=== PATIENT | female | born 1950 | race Caucasian/White ===

== ENCOUNTER → 2017-11-01 | Outpatient (CLI) | payer OTHER, MEDICARE ==
[~2017-11-01] MED LIST: AZILECT1 MG; LEVOTHYROXINE0.05 MG; NORCO 5-325 TA1 EACH PO; REQUIP 0.25 M0.25 M1
== END ==
LOC: MRI 13:22
DX: S83.411A Sprain of medial collateral ligament of right knee, initial encounter (principal); X58.XXXA Exposure to other specified factors, initial encounter; Y93.89 Activity, other specified; Y92.89 Other specified places as the place of occurrence of the external cause; Y99.8 Other external cause status

== ENCOUNTER → 2020-07-08 | Outpatient (CLI) | payer OTHER, MEDICARE ==
[~2020-07-08] MED LIST changes: +AMANTADINE 100100 M1 PO; +BAYER CHEWABLE81 MG PO; +CARBIDOPA-LEVO1 EAC9 PO; +CO-ENZYME Q-1010 MG PO; +DEXTROAMP-AMPHE20 MG PO; +LEVOTHYROXINE88 MCG PO; +LEXAPRO 10 MG T10 M2 PO; +NEURONTIN 300M300 M2 PO; +OCUVITE ADULT1 EAC1 PO; +ROPINIROLE HCL2 MG PO; +TIZANIDINE HCL 22 M1 PO; +TURMERIC500 M2 PO; +VITAMIN B-121000 MC2 SUBLING; +VITAMIN D325 MC3 PO
[2020-07-08 13:45] LABS: HEMATOCRIT 41.1 % (37.0-47.0); HEMOGLOBIN 14.2 gm/dL (12.0-15.0); MCH 35.4 pg (26.0-34.0); MCHC 34.5 g/dL (28.0-37.0); MCV 102.7 fL (80.0-100.0); RDW 12.9 % (10.5-14.5); URINE BILIRUBIN NEGATIVE (Negative); URINE BLOOD NEGATIVE (Negative); URINE CLARITY CLEAR; URINE COLOR YELLOW; URINE GLUCOSE-RANDOM* NEGATIVE (Negative); URINE KETONES NEGATIVE (Negative); URINE LEUKOCYTES-REFLEX NEGATIVE (Negative); URINE NITRITE-REFLEX NEGATIVE (Negative); URINE PROTEIN (DIPSTICK) NEGATIVE (Negative); URINE UROBILINOGEN 0.2 E.U./dl (0.2-1.0); WBC 7.7 thou/uL (4.0-11.0)
[2020-07-08 14:01] LABS: ALBUMIN 3.8 g/dL (3.4-5.0); CREATININE 1.2 mg/dL (0.6-1.0); INR 0.92; POTASSIUM 4.3 mmol/L (3.5-5.1); PROTIME 10.1 Seconds (9.3-11.4)
--- NOTE | 2020-07-08 15:15 | EKG ---
[address] [address] ELECTROCARDIOGRAM REPORT Name: JUSTA MIMS Room #: [facility]#: [id number] Admission: Attend Phys: Kumar Meeks MD Discharge: Date of : 50 Report #: [id number] [facility] Test Date: 2020-07-08 Test Time: 13:30:48 Pat Name: JUSTA CELAYACHESTER Department: Room: Gender: F [employer] Instructor: Annabelle GALLARDO : 1950 Requested By: Kumar Meeks Order Number: [id number] MD: Bill Mcmanus Measurements Intervals [place] Rate: 69 P: 67 HI: 152 QRS: 3 QRSD: 103 T: 55 QT: 393 QTc: 421 Interpretive Statements Sinus rhythm Normal tracing No previous ECG available for comparison Electronically Signed On 07-08-2020 15:15:08 CDT by Bill Mcmanus [email or web address] <ELECTRONICALLY SIGNED> By: Bill Mcmanus MD, [facility] 07/08/20 1515 1330 1330 Bill Mcmanus MD, FACC /EPI
== END ==
LOC: LAB 10:00
PROVIDERS: ATTEND Orthopaedic Surgery
DX: Z01.812 Encounter for preprocedural laboratory examination (principal); Z20.822 Contact with and (suspected) exposure to COVID-19; I49.9 Cardiac arrhythmia, unspecified

== ENCOUNTER 2020-07-13 06:34 | Inpatient (IN) | payer OTHER, MEDICARE ==
[~2020-07-13] VITALS: Ht 154.9 cm; Wt 74.4 kg
--- NOTE | ~2020-07-13 | O ---
[facility] [place] [address] OPERATIVE REPORT Name: JUSTA MIMS Room #: 439-P [facility].#: [id number] Admission: 07/13/20 Attend Phys: Kumar Meeks MD Discharge: Date of : 50 Report #: [id number] THIS REPORT FOR: cc: Stephanie Pak MD, Rita MD Abraham,Kumar Duarte MD ~ DATE OF SERVICE: 07/13/2020 PREOPERATIVE DIAGNOSIS: Left knee osteoarthritis. POSTOPERATIVE DIAGNOSIS: Left knee osteoarthritis. PROCEDURE: Left total knee arthroplasty using Navio robotic medical research assistant. SURGEON: Kumar Meeks MD MANAGER PAID: Kay Jaramillo PA-C INDICATIONS FOR MANAGER PAID: Throughout the case, extensive retraction and manipulation of the knee was required. This was afforded to me by my medical research assistant. ANESTHESIA: LMA with adductor canal block. IMPLANTS: [employer]ano [employer]hew size 5 Journey II BCS cobalt chrome femur, a size 3 tibia, size 32 patella and a 10 constrained polyethylene. TOURNIQUET TIME: 50 minutes. ESTIMATED BLOOD LOSS: 25 mL. COMPLICATIONS: None. SPECIMENS: None. CONDITION UPON LEAVING THE OPERATING ROOM: Stable. INDICATIONS FOR PROCEDURE: The patient is a 69-year-old female with severe left knee valgus osteoarthritis. She had failed conservative measures for this and after discussion with her, she elected for left total knee arthroplasty. DESCRIPTION OF PROCEDURE: Risks, benefits, alternatives, and complications were discussed in detail with the patient including but not limited to risk of anesthesia, risk of damage to nerves, arteries, blood vessels, risk for infection, bleeding, risk for reoperation. Informed consent was obtained from the patient. Left knee was appropriately marked in the preoperative holding [address] [address] OPERATIVE REPORT Name: JUSTA MIMS Room #: 439-P [facility] Ibrahima#: [id number] Admission: 07/13/20 Attend Phys: Kumar Meeks MD Discharge: Date of : 50 Report #: [id number]. Adductor canal block was placed by anesthesia. IV Ancef was given for preoperative antibiotics. She was brought to the operating room and placed in supine position on operating room table. LMA anesthesia was induced without complication. Tourniquet was placed on the left thigh. Left lower extremity was prepped and draped in normal sterile fashion. Timeout was performed properly identifying the patient and procedure as well as the instrumentation and implants. All in the operating room were in agreement. Left lower extremity was exsanguinated, tourniquet was inflated. Tourniquet time was 50 minutes. Standard midline approach to the knee was made with 10 blade through the skin. Dissection was taken down sharply to the fascia and deep flaps were developed medially and laterally. Fresh 10 blade was used to make a medial parapatellar arthrotomy and the knee was inspected. There was severe valgus osteoarthritis with complete loss of lateral joint articular cartilage. The ACL and PCL were removed sharply. Reference pins were placed in the femur and the tibia. The knee was then digitally mapped using the [employer] robotic system. Intraoperative plan was made and we sized the size 5 femur and a size 3 tibia and a 10 spacer. After acceptance of the intraoperative plan, the distal femoral cut was made with a Navio bur. Distal femoral cutting block was pinned in place and chamfer cuts were made. Attention was turned to the tibia. Remainder of the menisci removed with Bovie cautery. Tibial resection guide was pinned in place using the Navio for placement and tibial resection was made. Flexion and extension gaps were checked and found to have good balance laterally in flexion and extension medially, she did open up in 3-4 mm. It was felt we could make up for this with a constrained implant. Tibia was sized, found to be a size 3. A size 3 tibial trial was placed, pinned and punched. Size 5 femoral trial was placed and the box cut was made. This was then trialed with a size 10 polyethylene. Knee was taken through range of motion, found to be stable, found to have good balance laterally throughout range of motion with again 3-4 mm of laxity medially. It was felt we could use a constrained implant, 9 mm of bone was resected from the posterior surface of the patella and a size 32 patellar trial button was placed. Knee was taken through range of motion, found to be stable, found to have good patellar tracking. Trial components were removed. Bony ends were thoroughly irrigated with normal saline. Final size ____ tibia, size 32 patella were cemented in place using standard cementation techniques. While the cement cured, a periarticular injection consisting of morphine, ropivacaine, epinephrine, Toradol was placed around the knee joint capsule. After the cement cured, tourniquet was deflated. Hemostasis was obtained with Bovie cautery. Final size 10 constrained polyethylene was placed. A gram of vancomycin was placed deep in the joint. Fascia was closed with 0 Vicryl, skin was closed with 2-0 Vicryl, skin staple and a KEV dressing was applied. The [address] [address] OPERATIVE REPORT Name: JUSTA MIMS Room #: 439[facility]P [id number] Admission: 07/13/20 Attend Phys: Kumar Meeks MD Discharge: Date of : 50 Report #: [id number] patient tolerated this procedure well and went to the recovery room under care of anesthesia postoperatively. By: [id number] Kumar Meeks MD /nt
[~2020-07-13 06:34] MED LIST changes: -BAYER CHEWABLE81 MG PO; -NEURONTIN 300M300 M2 PO
[2020-07-13 08:42] VITALS: BP 125/64
[2020-07-13 11:48] VITALS: BP 133/71
--- NOTE | 2020-07-13 14:59 | NUR ---
ASSUMED PT CARE AT 1136. PT IS ALERT & ORIENTED X4. PT HAD SURGERY TODAY L TKA NAVIO. PT DENIES PAIN DURING SHIFT. PT HAS KEV DRESSING, TORRES ANAYA, ILDA. PT SISTER AT THE BEDSIDE. INFORMED DR ABOUT MED REC BECAUSE PT STATED SHE NEEDS TO TAKE HER MED AT EXACT TIME. GIVEN PT MED PER REQUEST. PT ON THE BED, BED ON THE LOWEST POSITION, SIDE RAILS UP, CALL LIGHT WITHIN REACH. WILL CONTINUE TO MONITOR PT. FOLLOW POC.
--- NOTE | 2020-07-13 15:37 | NUR ---
ASSESSMENT: CM REVIEWED CHART. PT IS ALERT AND ORIENTED X4. PT REPORTS LIVING IN A HOUSE WITH HER DAUGHTER AND GRANDSON. PT IS S/P L TKA. PT REPORTS HAVING ONE STEP TO ENTER THE HOME AND NO STEPS ONCE INSIDE. PT REPORTS HAVING A CANE FOR AMBULATION BUT DOES NOT HAVE A WALKER. PHYSICAL THERAPY UNABLE TO WORK WITH PT AT THIS TIME DUE TO FOOT DROP. CM DISCUSSED POSSIBLE NEED FOR A WALKER AT DISCHARGE AND PT REPORTS NO PREFERENCE OF [employer] IF WALKER IS NEEDED. PT REPORTS SHE HAS OUTPATIENT THERAPY ARRANGED TO BEGIN AT [facility] ON MONDAY. CM DISCUSSED ROLE. ANTICIPATE POSSIBLE NEED FOR WALKER AT DISCHARGE. CM WILL CONTINUE TO FOLLOW.
[2020-07-13 16:00] VITALS: BP 118/67
[2020-07-13 19:15] VITALS: BP 124/65
[2020-07-14 03:42] VITALS: BP 114/59
--- NOTE | 2020-07-14 04:48 | NUR ---
RECEIVED CARE OF THIS PATIENT AT 1900. PATIENT ALERT AND ORIENTED X4. DRESSING ON L KNEE D/I. HAS KEV DRESSING, TEDS, POLAR ICE AND BRUNA ON L KNEE. HAS TEDS AND SCD'S ON R LOWER EXT. RATED PAIN AT 1, SCHEDULED PAIN MED GIVEN. IV IN RFA PATENT WITH FLUIDS INFUSING. SLEPT MOST OF NIGHT.
[2020-07-14 05:08] LABS: ABSOLUTE NEUTROPHILS 8.7 thou/uL (1.4-8.2); BASOPHILS 0.2 % (0.0-2.0); EOSINOPHILS 0.1 % (0.0-3.0); HEMATOCRIT 34.5 % (37.0-47.0); HEMOGLOBIN 11.5 gm/dL (12.0-15.0); LYMPHOCYTES 15.2 % (24.0-44.0); MCH 34.7 pg (26.0-34.0); MCHC 33.4 g/dL (28.0-37.0); MCV 103.9 fL (80.0-100.0); MONOCYTES 7.6 % (1.0-8.0); PLATELET COUNT 220 thou/uL (150-400); POLYS 76.9 % (36.0-66.0); RBC 3.33 mil/uL (4.20-5.00); RDW 13.1 % (10.5-14.5); WBC 11.3 thou/uL (4.0-11.0)
[2020-07-14 05:18] LABS: CREATININE 0.6 mg/dL (0.6-1.0); MAGNESIUM 2.1 mg/dL (1.8-2.4); POTASSIUM 3.7 mmol/L (3.5-5.1)
[2020-07-14 07:40] VITALS: BP 101/57
[2020-07-14 12:58] VITALS: BP 101/57
--- NOTE | 2020-07-14 12:59 | NUR ---
ON-GOING ASSESSMENT: CM REVIEWED CHART. PT CONTINUES TO WORK WITH THERAPIES AND PAIN CONTROL. PT NOT STABLE FOR DISCHARGE TODAY. [employer] CAN SUPPLY PT WITH WALKER AT TIME OF DISCHARGE IF PT IS ABLE TO GO HOME. CM WILL CONTINUE TO FOLLOW FOR PHYSICAL THERAPY RECOMMENDATIONS.
[2020-07-14 16:30] VITALS: BP 111/90
--- NOTE | 2020-07-14 17:11 | NUR ---
ASSUMED CARE OF PT AT 0700 THIS MORNING. PT WAS ADMITTED POST SURGERY LEFT KNEE REPLACEMENT. LEFT KNEE IS WRAPPED CDI DRESSING, POLAR PACK IN PLACE. TORRES HOSE AND SCD'S IN PLACE.PT IS A/OX4, SKIN INTACT W/D/P, NO TENTING. SOME EDEMA NOTED IN THE LEFT FOOT, DISTAL PULSES AT 2+ IN BOTH FEET AND CR<3SEC. LUNGS CLEAR ALL CLIFFORD, EYES PERRLA, ABD SOFT NONTENDER, ACTIVE BOWEL SOUNDS, IV IN RIGHT FA, SL. ASSESSMENT OTHERWISE UNREMARKABLE. PT WORKED WITH PT TODAY AND WAS PLACED IN THE CHAIR EARLY AFTERNOON. PT IS STILL IN CHAIR WITH CALL LIGHT AND OTHER NEEDS WITHIN REACH.
[2020-07-14 20:06] VITALS: BP 94/59
--- NOTE | 2020-07-15 02:23 | NUR ---
ASSESSED AT START OF SHIFT, PT A&OX4 UP WITH ASSIST X1 TO THE BATHROOM. RATES PAIN 4/10 PAIN MEDICATION PROVIDED. ICE PACK IN PLACE. PT REPOSITIONED FOR COMFORT. DENIES N/V. RESTING WELL THIS SHIFT. WILL CONT TO MONITOR TILL EOS.
[2020-07-15 05:52] LABS: HEMATOCRIT 32.8 % (37.0-47.0); HEMOGLOBIN 11.1 gm/dL (12.0-15.0); MCH 35.5 pg (26.0-34.0); MCHC 33.9 g/dL (28.0-37.0); MCV 104.5 fL (80.0-100.0); RBC 3.14 mil/uL (4.20-5.00); RDW 13.1 % (10.5-14.5); WBC 7.6 thou/uL (4.0-11.0)
[2020-07-15 09:28] VITALS: BP 125/83
--- NOTE | 2020-07-15 10:31 | NUR ---
ASSUMED PT CARE THIS AM. PT IS ALERT & ORIENTED X4. PT HAD IV SITE ON R FA SALINE LOCKED BUT REMOVED DUE TO IV INFILTRATED THIS AM. PT C/O OF PAIN AND GIVEN PAIN MEDICATION. PT NO C/O NAUSEA AND VOMITING. PT HAS SCD AND POLAR PACK. PT IS ON ROOM AIR. PT IS WORKING WITH PATIENT TODAY. WILL CONTINUE TO MONITOR PT. FOLLOW POC.
--- NOTE | 2020-07-15 11:12 | NUR ---
ON-GOING ASSESSMENT: CM REVIEWED CHART AND SPOKE WITH PATIENT. PHYSICAL THERAPY WORKED WITH PATIENT AND ARE RECOMMENDING SNF. PT HAS NOT BEEN TO A SNF IN THE PAST. CM PROVIDED PATIENT WITH SNF LIST. SHE PREFERS A REFERRAL TO [facility]. CM FAXED REFERRAL AND AWAITING INPUT AT THIS TIME.
[2020-07-15] MEDS ORDERED: NEURONTIN 300M300 M2 PO ×2 (12:43)
[2020-07-15] MEDS ORDERED: BAYER CHEWABLE81 MG PO ×2 (12:43)
== END 2020-07-15 17:42 | DRG 470 ==
LOC: OR 06:34 → TBA 06:38 → OR 09:22 → 4S 11:43 → OR 11:44 → 4S 11:44 → OR 12:35 → 4S 07-15 17:42
PROVIDERS: Nurse Practitioner; ADMIT Orthopaedic Surgery; ATTEND Orthopaedic Surgery
PROC: 8E0Y0CZ Robotic Assisted Procedure of Lower Extremity, Open Approach (ICD-10-PCS; principal; 2020-07-13)
PROC: 0SRD0J9 Replacement of Left Knee Joint with Synthetic Substitute, Cemented, Open Approach (ICD-10-PCS; principal; 2020-07-13)
DX: M17.12 Unilateral primary osteoarthritis, left knee (principal); F32.9 Major depressive disorder, single episode, unspecified; F41.9 Anxiety disorder, unspecified; E03.9 Hypothyroidism, unspecified; G25.81 Restless legs syndrome; K21.9 Gastro-esophageal reflux disease without esophagitis; G20 Parkinson's disease; E66.9 Obesity, unspecified; R53.81 Other malaise; Z88.1 Allergy status to other antibiotic agents; Z79.82 Long term (current) use of aspirin; Z79.899 Other long term (current) drug therapy; Z85.51 Personal history of malignant neoplasm of bladder; Z68.31 Body mass index [BMI] 31.0-31.9, adult
CPT/HCPCS: 10102; 50010; 50101; 50415; 50954; 51130; 51225; 51320; 51412; 52001; 52282; 53000; 53078; 56527; 56528; 57095; 57103; 57110; 57127; 57180; 58239; 62110; 62900; 64043; 65060; 70005